=== PATIENT | female | born 1995 | race Caucasian/White ===

== ENCOUNTER → 2016-07-25 | Outpatient (CLI) | payer OTHER ==
--- NOTE | 2016-07-25 11:35 | US ---
Right Breast Ultrasound History: Evaluate palpable asymmetry in the outer aspect of the right breast in a 20-year-old female. Technique: Longitudinal and transverse images were obtained utilizing a 15 MHz transducer. Color Dop pler evaluation was employed for assessment of vascularity. Findings: The palpable area in the outer right breast is identified on physical examination and does not feel like a discrete mass, but rather a ridge of glandular tissue. Sonographic interrogation demo nstrates prominent fibroglandular elements. No solid or cystic mass is seen. Impression: Benign breast ultrasound. BI-RADS 2. Recommendation: Continued clinical follow up and as long as physical examination is benign, routine m ammographic screening is recommended at the age of 40.. Findings and follow-up recommendations were reviewed with the patient in detail. [facility] will send a result letter to the patient.
== END ==
LOC: FIMAGING 11:02
PROVIDERS: ATTEND Obstetrics & Gynecology Gynecology
DX: Z12.39 Encounter for other screening for malignant neoplasm of breast (principal); N63 Unspecified lump in breast